=== PATIENT | male | born 1980 | race Hispanic/Latino ===

== ENCOUNTER → 2018-12-19 | Outpatient (CLI) | payer BC | END | disposition home or self-care (01) | LOC: SHCH 08:11 | PROVIDERS: ATTEND Internal Medicine Cardiovascular Disease | DX: I11.9 Hypertensive heart disease without heart failure (principal); N28.1 Cyst of kidney, acquired | CPT/HCPCS: 93306; 93975 ==

== ENCOUNTER → 2018-12-20 | Outpatient (CLI) | payer BC ==
[~2018-12-20] MED LIST: REGADENOSON 0.4 MG/5 ML PF SYG IVP SCH
== END | disposition home or self-care (01) ==
LOC: SHCH 07:50 → EDUNIT# 08:00
PROVIDERS: ATTEND Internal Medicine Cardiovascular Disease
DX: R07.9 Chest pain, unspecified (principal)
CPT/HCPCS: 78452; 93017; 96374; A9500 ×2; J2785

== ENCOUNTER 2019-01-22 05:45 | Day surgery (SDC) | payer BC ==
[2019-01-18 10:36] LABS: BASOPHILS % (AUTO) 0.5 % (0.0-5.0); EOSINOPHILS % (AUTO) 3.2 % (0.0-8.0); HEMATOCRIT 45.3 % (42-54); LYMPHOCYTES % (AUTO) 25.4 % (21.0-51.0); MEAN CORPUSCULAR HEMOGLOBIN 26.9 pg (27.0-33.0); MEAN CORPUSCULAR VOLUME 81.7 fL (79-99); MONOCYTES % (AUTO) 6.7 % (3.0-13.0); NEUTROPHILS % (AUTO) 64.2 % (40.0-77.0); NUCLEATED RED BLOOD CELLS 0.1 % (0.0-0.19); PLATELET COUNT (AUTO) 203 K/uL (130-400); RED BLOOD CELL COUNT(AUTO) 5.55 MIL/uL (4.50-6.20); RED CELL DISTRIBUTION WIDTH 13.8 % (11.0-15.5); WHITE BLOOD COUNT (AUTO) 7.1 K/uL (4.8-10.8)
[2019-01-18 10:37] LABS: APPEARANCE,URINE Clear (CLEAR); BILIRUBIN,URINE Negative (NEGATIVE); COLOR,URINE Yellow (YELLOW); GLUCOSE, URINE (UA) >=1000 mg/dL (NEGATIVE); KETONES,URINE Negative (NEGATIVE); LEUKOCYTE ESTERASE ,URINE Negative (NEGATIVE); NITRATE,URINE Negative (NEGATIVE); OCCULT BLOOD,URINE Negative (NEGATIVE); PROTEIN,URINE Negative (NEGATIVE)
[2019-01-18 10:54] LABS: INR 0.92 (0.85-1.15); PARTIAL THROMBOPLASTIN TIME 30.6 SEC (26.3-35.5); PROTHROMBIN TIME 9.7 SEC (9.6-11.6)
[2019-01-18 10:55] LABS: CREATININE 1.5 mg/dL (0.5-1.5); POTASSIUM 3.8 mmol/L (3.5-5.1)
[2019-01-18 10:56] LABS: BACTERIA,URINE Rare /HPF (None Seen); RBC,URINE None Seen /HPF (0-1); SQUAMOUS EPITHELIAL CELL,UR Rare /HPF (0-2); WBC,URINE 0-1 /HPF (0-1)
[2019-01-18 11:47] VITALS: BP 180/96
--- NOTE | 2019-01-21 11:30 | NUR ---
ABNORMAL LABS NOTIFIED DR. GIORDANO OF [facility]S [facility] 1.5. ORDERED TO GIVE NS 200 ML/HR X 1 LITER AND INSTRUCT PT TO PUSH FLUIDS TONIGHT.
[2019-01-22] VITALS (17 sets, daily range): BP systolic 118–175; BP diastolic 83–112
[~2019-01-22] VITALS: Ht 175.3 cm; Wt 122.0 kg
[~2019-01-22 05:45] MED LIST changes: +LOSA50TA64 PO; +METF-444 PO; -REGADENOSON 0.4 MG/5 ML PF SYG IVP SCH; +ROSU5TAB11 PO
[2019-01-22] MEDS ORDERED: SODIUM CHLORIDE 0.9% 1000ML 1,000 ML IV SCH ×2 (06:00→13:51)
[2019-01-22] MEDS ORDERED: ALPRAZOLAM 0.5 MG TABLET PO SCH (08:00)
--- NOTE | 2019-01-22 08:10 | NUR ---
ELEVATED BP REPORTED HIGH BLOOD PRESSURE TO JOSEPH SAVAGE. 165/112 ON ARRIVAL TO DAY PATIENT. RECHECKED AGAIN 171/108. PATIENT STATES BEING EXTREMELY NERVOUS. HE TOOK HIS [place] 50MG TAB THIS MORNING AT 0420AM. NO CHEST PAIN, NO HEADACHE. JOSEPH SAVAGE ORDERED XANAX 0.5 MG PO, ONE TIME DOSE.
[2019-01-22] MEDS ORDERED: NITR0.4T50 SL (08:32)
[2019-01-22] MEDS ORDERED: METO25TA6 PO (08:32)
[2019-01-22] MEDS ORDERED: CLONIDINE HCL 0.1 MG TABLET PO SCH (09:07)
--- NOTE | 2019-01-22 09:09 | NUR ---
BP REPORTED ELEVATED BP TO JOSEPH SAVAGE 170/102. ORDERS TO GIVE CLONIDINE 0.1MG PO ONE TIME DOSE.
--- NOTE | 2019-01-22 10:30 | NUR ---
BP REPORTED BP 143/104 TO JOSEPH SAVAGE. NO NEW ORDERS
[2019-01-22] MEDS ORDERED: HEPARIN SODIUM 1000UNIT/ML 10ML VIAL ONE (13:11)
[2019-01-22] MEDS ORDERED: IOHEXOL 350 MG/ML 100ML INFUS..BTL IV ONE (13:11)
[2019-01-22] MEDS ORDERED: NITROGLYCERIN 5 MG/ML 10 ML VIAL IV ONE (13:11)
[2019-01-22] MEDS ORDERED: IOHEXOL-350 50ML VIAL IV ONE (13:12)
[2019-01-22] MEDS ORDERED: LIDOCAINE HCL 2% 20ML ONE (13:12)
[2019-01-22] MEDS ORDERED: SODIUM BICARB 50MEQ 50ML VIAL ONE (13:17)
[2019-01-22] MEDS ORDERED: DEXTROSE 50%-WATER 50 ML DISP.SYRIN IV PRN (14:00)
[2019-01-22] MEDS ORDERED: GLUCAGON 1MG KIT 1 MG ML IM PRN (14:00)
[2019-01-22] MEDS ORDERED: INSULIN HUMULIN R 100 UNIT/ML 3ML SQ SCH (16:30)
== END 2019-01-22 18:10 | disposition home or self-care (01) ==
LOC: DAH 05:45
PROVIDERS: ATTEND Internal Medicine Cardiovascular Disease
DX: I25.118 Atherosclerotic heart disease of native coronary artery with other forms of angina pectoris (principal); Z79.899 Other long term (current) drug therapy; Z79.01 Long term (current) use of anticoagulants; E78.5 Hyperlipidemia, unspecified; E11.9 Type 2 diabetes mellitus without complications; E66.9 Obesity, unspecified; Z82.49 Family history of ischemic heart disease and other diseases of the circulatory system; Z98.890 Other specified postprocedural states; Z79.84 Long term (current) use of oral hypoglycemic drugs; Z68.39 Body mass index [BMI] 39.0-39.9, adult; R07.9 Chest pain, unspecified; I11.9 Hypertensive heart disease without heart failure; R94.39 Abnormal result of other cardiovascular function study; R55 Syncope and collapse
CPT/HCPCS: 36415; 71045; 80048; 81001; 82948 ×3; 85025; 85610; 85730; 93005; 93458; 96360; 96361; A4606; C1760; C1894; J1644; J3490 ×3; J7030; Q9965; Q9967 ×2